=== PATIENT | female | born 2000 | race Caucasian/White ===

== ENCOUNTER → 2023-03-21 15:40 | Outpatient (CLI) | payer OTHER, SELFPAY ==
[2023-03-21 16:14] LABS: Add Manual Diff / Slide Review NO; Basophils Absolute Auto 100 /uL (0-100); Basophils Percent Auto 0.8 % (0-2); Eosinophils Absolute Auto 300 /uL (0-450); Eosinophils Percent Auto 2.5 % (2-4); Hematocrit 40.7 % (36-46); Hemoglobin 13.8 g/dL (12.0-16.0); Lymphocytes Absolute Auto 2800 /uL (1100-4500); Lymphocytes Percent Auto 22.9 % (25-40); Mean Corpuscular Hemoglobin 31.7 PG (26-34); Mean Corpuscular Volume 93.1 fL (80-100); Monocytes Absolute Auto 800 /uL (0-900); Monocytes Percent Auto 6.3 % (3-14); Neutrophils Absolute Auto 8300 /uL (1500-7000); Neutrophils Percent Auto 67.5 % (50-75); Platelet Count 334 X10^3/uL (150-400); Red Blood Cell Count 4.37 X10^6/uL (4.0-5.2); Red Cell Distribution Width 12.8 % (11.6-14.8); White Blood Cell Count 12.2 X10^3/uL (4.5-11.0)
[2023-03-21 16:53] LABS: Alanine Aminotransferase 51 IU/L (<35); Albumin 4.4 g/dL (3.5-5.0); Albumin Globulin Ratio 1.2 (1.0-2.8); Alkaline Phosphatase 65 U/L (38-126); Aspartate Aminotransferase 34 IU/L (14-36); BUN Creatinine Ratio 15.4 (6-22); Bilirubin Total 0.5 mg/dL (0.2-1.3); Blood Urea Nitrogen 10 mg/dL (7-17); Calcium 9.2 mg/dL (8.4-10.2); Carbon Dioxide 27 mmol/L (22-32); Chloride 102 mmol/L (98-107); Cholesterol 216 mg/dL (140-199); Estimated Glomerular Filt Rate > 60 mL/min (>60); Globulin 3.7 g/dL (1.7-4.1); Glucose 79 mg/dL (70-100); HDL Cholesterol 33 mg/dL (40-60); HEMOLYSIS < 15 (0-50); LDL Cholesterol Calculated 124 mg/dL (<100); Potassium 4.1 mmol/L (3.4-5.1); Sodium 137 mmol/L (137-145); Total Protein 8.1 g/dL (6.3-8.2); Triglycerides 293 mg/dL (35-150)
[2023-03-22 07:03] LABS: Labcorp Hemoglobin (Hb) A1c 5.4 % (4.8-5.6)
[2023-03-24 17:50] LABS: HIV 1 & 2 Ab/Ag 4th Gen Combo NEGATIVE (NEGATIVE); Hep C Virus Ab w/Reflex Quant NEGATIVE s/c (NEGATIVE)
== END ==
PROVIDERS: PCP Family Medicine; Referring Provider Family Medicine; Visit Provider Family Medicine
DX: Z00.00 Encounter for general adult medical examination without abnormal findings (principal); E28.2 Polycystic ovarian syndrome; E66.01 Morbid (severe) obesity due to excess calories
CPT/HCPCS: 36415; 80053; 80061; 83036; 84443; 85025; 86803; 87389

== ENCOUNTER → 2023-06-13 15:21 | Outpatient (CLI) | payer OTHER, SELFPAY ==
[2023-06-13 17:43] LABS: Follicle Stimulating Hormone 3.65 mIU/mL; Luteinizing Hormone 4.83 mIU/mL
== END ==
PROVIDERS: PCP Family Medicine; Referring Provider Obstetrics & Gynecology; Visit Provider Obstetrics & Gynecology
DX: N97.0 Female infertility associated with anovulation (principal)
CPT/HCPCS: 36415; 83001; 83002; 84439

== ENCOUNTER → 2023-06-20 09:23 | Outpatient (CLI) | payer OTHER, SELFPAY ==
--- NOTE | 2023-06-20 | DI.US.S_ITS ---
PROCEDURE: US PELVIC COMPLETE INDICATIONS: AMENORRHEA TECHNIQUE: Real-time scanning was performed of the pelvic organs, with image documentation. Additional endovaginal scanning was necessary due to incomplete visualization of the adnexal and endometrial structures by transabdominal scanning. COMPARISON: None. FINDINGS: Uterus: Uterus is anteverted and normal in size at 6.4 x 2.6 x 3.2 cm. The myometrium is homogeneous. The endometrium measures 6 mm combined thickness. Ovaries: The right ovary measures 4.6 x 2.1 x 2.5 cm, with a calculated ovarian volume of 12.2 cc. The left ovary measures 4.2 x 2.5 x 2.6 cm, with a calculated ovarian volume of 14.1 cc. The ovaries have a normal sonographic appearance. There are greater than 12 follicles within the bilateral ovaries. No adnexal masses are seen. Other: No pathologic free abdominal or pelvic fluid. IMPRESSION: 1. Findings meet the [place] 2003 definition for polycystic ovaries. Findings and the clinical history of ovulatory dysfunction in the absence of hyperandrogenism satisfy [place] criteria, but not the Androgen Excess and PCOS Society guidelines, for the diagnosis of PCOS. Further clinical evaluation is warranted. We strive to produce accurate, complete, and clear reports of imaging services. To assist us in improving patient care, this report was composed using standard report templates and voice recognition software. Therefore, it may contain abnormal punctuation, insertions and/or omissions. Occasional wrong-word or sound-alike substitutions may occur. Though we review the report and make efforts to correct it, we do recommend that the report be read carefully in proper context to recognize any text inaccuracies. Dictated by: Elda Marquez M.D. on 06/20/2023 at 13:47 Approved by: Elda Marquez M.D. on 06/20/2023 at 13:50
== END ==
PROVIDERS: PCP Family Medicine; Referring Provider Obstetrics & Gynecology; Visit Provider Obstetrics & Gynecology
DX: N97.0 Female infertility associated with anovulation (principal)
CPT/HCPCS: 76830; 76856; 93975

== ENCOUNTER 2023-12-30 14:38 | Emergency (ER) | payer OTHER, SELFPAY ==
[2023-12-30] VITALS (13 sets, daily range): BP systolic 101–132; BP diastolic 57–77; PULSE 79–110; RESP 18–39; TEMP 36.6; O2SAT 96–97; BMI 48.4
--- NOTE | 2023-12-30 14:47 | DI.RAD.S_ITS ---
PROCEDURE: XR CHEST 1V INDICATIONS: chest pain TECHNIQUE: One view of the chest was acquired. COMPARISON: None. FINDINGS: Surgical changes and devices: None. Lungs and pleura: Lungs are clear. No pleural effusions or pneumothorax. Mediastinum: Mediastinal contours appear normal. Heart size is normal. Bones and chest wall: No suspicious bony lesions. Overlying soft tissues appear unremarkable. IMPRESSION: No acute cardiopulmonary abnormality is seen. Dictated by: Chelsie Moctezuma MD, PhD on 12/30/2023 at 16:07 Approved by: Chelsie Moctezuma MD, PhD on 12/30/2023 at 16:07
--- NOTE | 2023-12-30 15:04 | PC.NURSE ---
Pt reports chest pain starting yesterday. Midline. Non-radiating. Pt states she does not take control and she does not smoke; no history of blood clots.
[2023-12-30 15:13] LABS: Add Manual Diff / Slide Review NO; Basophils Absolute Auto 100 /uL (0-100); Basophils Percent Auto 0.7 % (0-2); Eosinophils Absolute Auto 300 /uL (0-450); Eosinophils Percent Auto 2.4 % (2-4); Hemoglobin 13.6 g/dL (12.0-16.0); Lymphocytes Absolute Auto 2900 /uL (1100-4500); Lymphocytes Percent Auto 24.6 % (25-40); Mean Corpuscular HGB Conc 34.1 % (30-36); Mean Corpuscular Hemoglobin 31.4 PG (26-34); Mean Corpuscular Volume 92.2 fL (80-100); Monocytes Absolute Auto 600 /uL (0-900); Monocytes Percent Auto 5.4 % (3-14); Neutrophils Absolute Auto 7900 /uL (1500-7000); Neutrophils Percent Auto 66.9 % (50-75); Platelet Count 320 X10^3/uL (150-400); Red Blood Cell Count 4.34 X10^6/uL (4.0-5.2); Red Cell Distribution Width 12.8 % (11.6-14.8); White Blood Cell Count 11.9 X10^3/uL (4.5-11.0)
[2023-12-30 15:24] LABS: PTT Partial Thromboplastin Tim 43 SECONDS (25.1-36.5)
[2023-12-30] MEDS: ASPIRIN 81 MG CHEW TAB 324 MG PO (15:27)
[2023-12-30 15:28] LABS: Alanine Aminotransferase 40 IU/L (<35); Albumin 4.3 g/dL (3.5-5.0); Albumin Globulin Ratio 1.1 (1.0-2.8); Alkaline Phosphatase 65 U/L (38-126); Aspartate Aminotransferase 31 IU/L (14-36); BUN Creatinine Ratio 15.1 (6-22); Bilirubin Total 0.6 mg/dL (0.2-1.3); Blood Urea Nitrogen 8 mg/dL (7-17); Calcium 9.1 mg/dL (8.4-10.2); Carbon Dioxide 24 mmol/L (22-32); Chloride 108 mmol/L (98-107); Creatine Kinase 47 U/L (30-135); Estimated Glomerular Filt Rate > 60 mL/min (>60); Globulin 3.8 g/dL (1.7-4.1); Glucose 88 mg/dL (70-100); HEMOLYSIS 23 (0-50); Lipase 44 U/L (23-300); Magnesium 2.1 mg/dL (1.6-2.3); Potassium 4.2 mmol/L (3.4-5.1); Sodium 138 mmol/L (137-145); Total Protein 8.1 g/dL (6.3-8.2)
[2023-12-30 15:39] LABS: Troponin I < 0.012 ng/mL (0.01-0.034)
--- NOTE | 2023-12-30 16:18 | ED.CHESTPAIN ---
HPI - Chest Pain General Chief Complaint: Chest Pain Stated Complaint: SOB/ CHEST PAINS T-1 Time Seen by Provider: 12/30/23 15:55 Source: patient and family Mode of arrival: Ambulatory History of Present Illness HPI narrative: [age] old female with history of asthma uses albuterol no other reported medical issues who presents with complaint of shortness of breath. Patient states she has had albuterol helpful but not as helpful the last day or so. Patient states no fevers or chills. She did have some chest heaviness earlier today. She states it feels very tight like her usual asthma exacerbations. She has not been on any steroids recently. She has had oral steroids in the past she denies hospitalization. She denies any syncope, no fevers or chills, no cold cough or congestive symptoms at all nausea earlier today no vomiting. No issues with bowel movements. No urinary symptoms. No swelling of extremities. She states she has not on any estrogen, only uses albuterol, no prior steroid inhalers. States only prior surgeries or wisdom teeth. No known drug allergies. No tobacco, rare alcohol, no recreational drugs. Spouse smokes nicotine but does not use any tobacco or smoke around the patient. Patient has not had any long distance travel. No history of pulmonary emboli. Dr. Villatoro is her primary care physician. Related Data Previous Rx's Medication Instructions Recorded phentermine 37.5 mg tablet 18.75 mg (1/2 x 37.5 mg) PO DAILY 05/02/23 #30 tabs fexofenadine 180 mg tablet 180 mg PO DAILY #90 tabs 06/17/23 vitamins no.119-iron 1 tab PO DAILY #90 tabs 06/17/23 fumarate 29 mg-folic acid 1 mg tablet letrozole 2.5 mg tablet 2.5 mg PO DAILY #5 tabs 08/13/23 medroxyprogesterone 10 mg tablet 10 mg PO DAILY #10 tabs 08/13/23 albuterol sulfate 90 mcg/actuation 1 - 2 inh inhalation Q4-6H PRN 11/18/23 aerosol inhaler shortness of breath or wheezing #8.5 grams albuterol sulfate 2.5 mg/3 mL 2.5 mg (3 mL) inhalation QID PRN 11/19/23 (0.083 %) solution for nebulization wheezing #75 mL albuterol sulfate 2.5 mg/3 mL 2.5 mg (3 mL) inhalation Q4-6H PRN 12/30/23 (0.083 %) solution for nebulization shortness of breath or wheezing #75 mL albuterol sulfate 90 mcg/actuation 2 puff inhalation Q4-6H PRN 12/30/23 aerosol inhaler shortness of breath or wheezing #6.7 grams prednisone 10 mg tablets in a dose See Rx Instructions PO .COMPLEX 12/30/23 pack #21 ea Allergies Allergy/AdvReac Type Severity Reaction Status Date / Time No Known Drug Allergies Allergy Verified 12/30/23 14:42 Review of Systems Review of Systems ROS Unobtainable: All systems reviewed & are unremarkable except as noted in HPI and below Patient History Medical History Asthma (~2004) Allergies (~2004) Abnormal chest xray (~2006) Depression (~2015) Anxiety (~2015) Fractures (~2015) Chicken pox Abnormal Pap smear of cervix Mixed hyperlipidemia PCOS (polycystic ovarian syndrome) Irregular menstrual cycle (~2011) Morbid obesity Surgical History [place] teeth extracted Family History Father History of heart disease Hypertension Mother Cancer Hypertension Mental health problem History of surgery Brother Hypertension Sister Hypertension Grandfather Diabetes mellitus History of heart disease Hyperlipidemia Hypertension Kidney failure Cancer Grandmother Cancer History of heart disease Hyperlipidemia Hypertension Mental health problem Stroke Grandfather Cancer History of heart disease Hyperlipidemia Hypertension Grandmother Diabetes mellitus History of heart disease Hyperlipidemia Hypertension COPD (chronic obstructive pulmonary disease) Social History Smoking Status: Never smoker Smoking Status: Never smoker Substance Use Type: does not use Exam Narrative Exam Narrative: GENERAL: Alert and oriented x three, obese female in mild distress. HEENT: Head normocephalic, atraumatic, EOMI, pupils reactive, face symmetric, moist mucous membranes NECK: Supple, full range of motion CARDIOVASCULAR: Regular rate and rhythm without murmurs, rubs or gallops. No JVD. No swelling bilateral lower extremities. RESPIRATORY: Breath sounds equal bilaterally, no wheezes rales or rhonchi. No tachypnea or accessory muscle use. ABDOMEN: Soft, nontender. Normoactive bowel sounds all 4 quadrants. No guarding or rebound, rigidity, no mass : No CVA tenderness EXTREMITIES: Normal range of motion, no clubbing or edema. Neurovascularly intact NEUROLOGICAL: Cranial nerves II through XII grossly intact. Moving all extremities SKIN: Warm, dry, no petechiae, no rashes or lesions. Initial Vital Signs Initial Vital Signs: Vital Signs Temperature 97.9 F 12/30/23 14:42 Pulse Rate 103 H 12/30/23 14:42 Respiratory Rate 18 12/30/23 14:42 Blood Pressure 113/77 12/30/23 14:42 Pulse Oximetry 97 12/30/23 14:42 Oxygen Delivery Method Room Air 12/30/23 14:42 Course Orders Ordered: ED Orders 12/30/23 14:47 XR chest 1V Stat 12/30/23 14:54 EKG-12 Lead Stat 12/30/23 15:00 Complete Blood Count AUTO DIFF Stat Comprehensive Metabolic Panel Stat Lipase Stat Magnesium Stat PTT Partial Thromboplastin Alfredo Stat Prothrombin Time INR Stat Troponin & CK Cardiac Panel Stat Discontinued Medications Aspirin (Aspirin 81 Mg Chew Tab) 324 mg PO NOW ONE Stop: 12/30/23 14:48 Last Admin: 12/30/23 15:27 Dose: 324 mg Documented By: LYN Prednisone (Prednisone 20 Mg Tablet) 60 mg PO NOW ONE Stop: 12/30/23 17:45 Last Admin: 12/30/23 17:50 Dose: 60 mg Vital Signs Vital signs: Vital Signs - 8 hr 12/30/23 14:42 12/30/23 14:52 12/30/23 14:54 Temperature 97.9 F Pulse Rate 103 H 110 H 107 H Respiratory Rate 18 22 Blood Pressure 113/77 Pulse Oximetry 97 97 Oxygen Delivery Method Room Air 12/30/23 14:54 12/30/23 15:00 12/30/23 15:01 Temperature Pulse Rate 98 H Respiratory Rate 20 Blood Pressure 113/72 132/73 Pulse Oximetry 96 Oxygen Delivery Method Room Air 12/30/23 15:01 12/30/23 15:30 12/30/23 16:00 Temperature Pulse Rate 99 H 94 H Respiratory Rate 20 20 Blood Pressure 106/57 L Pulse Oximetry 97 96 Oxygen Delivery Method 12/30/23 16:00 12/30/23 16:30 12/30/23 16:31 Temperature Pulse Rate 88 85 85 Respiratory Rate 31 H 28 H 21 Blood Pressure Pulse Oximetry 97 97 96 Oxygen Delivery Method 12/30/23 16:31 12/30/23 17:00 12/30/23 17:01 Temperature Pulse Rate 84 Respiratory Rate 22 Blood Pressure 105/65 111/71 Pulse Oximetry 96 Oxygen Delivery Method 12/30/23 17:01 12/30/23 17:30 12/30/23 17:32 Temperature Pulse Rate 87 86 Respiratory Rate 21 39 H Blood Pressure 101/60 Pulse Oximetry 96 97 Oxygen Delivery Method 12/30/23 17:32 Temperature Pulse Rate 79 Respiratory Rate 25 H Blood Pressure Pulse Oximetry 97 Oxygen Delivery Method MDM - Chest Pain Lab Data 12/30/23 15:00 12/30/23 15:00 Labs: Lab Results 12/30/23 Range/Units 15:00 WBC 11.9 H (4.5-11.0) X10^3/uL RBC 4.34 (4.0-5.2) X10^6/uL Hgb 13.6 (12.0-16.0) g/dL Hct 40.0 (36-46) % MCV 92.2 (80-100) fL MCH 31.4 (26-34) PG MCHC 34.1 (30-36) % RDW 12.8 (11.6-14.8) % Plt Count 320 (150-400) X10^3/uL Neut % (Auto) 66.9 (50-75) % Lymph % (Auto) 24.6 L (25-40) % [place] % (Auto) 5.4 (3-14) % Eos % (Auto) 2.4 (2-4) % Baso % (Auto) 0.7 (0-2) % Neut # (Auto) 7900 H (5769-2264) /uL Lymph # (Auto) 2900 (7843-4907) /uL [place] # (Auto) 600 (0-900) /uL Eos # (Auto) 300 (0-450) /uL Baso # (Auto) 100 (0-100) /uL PT 11.0 (9.4-12.5) SECONDS INR 1.0 (0.9-1.3) APTT 43 H (25.1-36.5) SECONDS Sodium 138 (137-145) mmol/L Potassium 4.2 (3.4-5.1) mmol/L Chloride 108 H (98-107) mmol/L Carbon Dioxide 24 (22-32) mmol/L BUN 8 (7-17) mg/dL Creatinine 0.53 (0.52-1.04) mg/dL Estimated GFR > 60 (>60) mL/min BUN/Creatinine Ratio 15.1 (6-22) Glucose 88 (70-100) mg/dL Calcium 9.1 (8.4-10.2) mg/dL Magnesium 2.1 (1.6-2.3) mg/dL Total Bilirubin 0.6 (0.2-1.3) mg/dL AST 31 (14-36) IU/L ALT 40 H (<35) IU/L Alkaline Phosphatase 65 (38-126) U/L Total Creatine Kinase 47 (30-135) U/L Troponin I < 0.012 (0.01-0.034) ng/mL Total Protein 8.1 (6.3-8.2) g/dL Albumin 4.3 (3.5-5.0) g/dL Globulin 3.8 (1.7-4.1) g/dL Albumin/Globulin Ratio 1.1 (1.0-2.8) Lipase 44 (23-300) U/L Imaging Data Chest x-ray: Radiologist's Impression: [address] [address] XRay Report Signed Patient: Jayshree Collado MR#: [id number] : 2000 Acct:[id number] Age/Sex: 23 / F Date of Service: 12/30/23 Loc: ED Accession Number: [id number] Procedure: XR chest 1V Ordering Provider: Layne Tse D.O. PROCEDURE: XR CHEST 1V INDICATIONS: chest pain TECHNIQUE: One view of the chest was acquired. COMPARISON: None. FINDINGS: Surgical changes and devices: None. Lungs and pleura: Lungs are clear. No pleural effusions or pneumothorax. Mediastinum: Mediastinal contours appear normal. Heart size is normal. Bones and chest wall: No suspicious bony lesions. Overlying soft tissues appear unremarkable. IMPRESSION: No acute cardiopulmonary abnormality is seen. Dictated by: Chelsie Moctezuma MD, PhD on 12/30/2023 at 16:07 Approved by: Chelsie Moctezuma MD, PhD on 12/30/2023 at 16:07 ECG Data Attestation: I personally reviewed and interpreted this ECG as follows: Prior ECG tracings: not available for review Interpretation: Sinus tach rate of 104 IN 140 QRS is 74 QTC of 454. No acute ST elevation, no priors for comparison. MDM Narrative Medical decision making narrative: 3-year-old female comes in with complaint of asthma exacerbation and tightness in her chest. On exam she is slightly tachycardic initially with vitals but not on my examination. Patient has been sitting for some time. She is not wheezy lungs are clear. Labs show white count of 11.9 hemoglobin of 13 platelets of 320, creatinine 0.53 with a BUN of 8, glucose 88, sodium of 138 potassium of 4.2 with chloride of 108 and a CO2 of 24, negative LFTs. Negative troponin. Chest x-ray is negative for pneumonia or acute structural changes. EKG shows sinus tach no acute ST changes, no S1 Q 1 T3. Discussed with patient she has not wheezy or tight although she feels improved now. She did not have any treatments here in the department. I would recommend repeat troponin and D-dimer here in the department. Patient would very much like to return home and defers this. She and I discussed we will do a short course of steroids to see if this is helpful but that we have not completed her workup and she has not had ruled out pulmonary emboli. Discharge Plan Departure Patient Disposition: Home Clinical Impression: Dyspnea Activity Restrictions/Additional Instructions: Follow up for recheck. If you are shortness of breath is persisting I do recommend repeat follow-up as we did not totally complete your workup. Take steroids daily until gone. Prescription for albuterol inhaler as well as vials for your nebulizer were sent to [facility] in [place]. Please return for new or worsening symptoms, passing out, increasing shortness of breath, new chest pain, persistent vomiting, swelling of extremities or other new or concerning changes. Prescriptions: New prednisone 10 mg tablets,dose pack See Rx Instructions .ROUTE .COMPLEX Qty: 21 0RF Rx Instructions: Take 6 tablets p.o. times 1day, take 5 tablets p.o. x1 day, take 4 tablets p.o. x1 day, 3 tablets p.o. x1 day, 2 tablets p.o. x1 day, 1 tablet x 1 day albuterol sulfate 2.5 mg /3 mL (0.083 %) solution for nebulization 2.5 mg inhalation Q4-6H PRN (Reason: shortness of breath or wheezing) Qty: 75 0RF albuterol sulfate 90 mcg/actuation HFA aerosol inhaler 2 puff inhalation Q4-6H PRN (Reason: shortness of breath or wheezing) Qty: 6.7 0RF No Action albuterol sulfate 90 mcg/actuation HFA aerosol inhaler 1 - 2 inh inhalation Q4-6H PRN (Reason: shortness of breath or wheezing) Qty: 8.5 11RF albuterol sulfate 2.5 mg /3 mL (0.083 %) solution for nebulization 2.5 mg inhalation QID PRN (Reason: wheezing) Qty: 75 11RF phentermine 37.5 mg tablet 18.75 mg PO DAILY Qty: 30 0RF Rx Instructions: must administer 30 minutes before or 1-2 hours after breakfast medroxyprogesterone 10 mg tablet 10 mg PO DAILY Qty: 10 3RF Rx Instructions: Take one a day for 10 days letrozole 2.5 mg tablet 2.5 mg PO DAILY Qty: 5 0RF Rx Instructions: Take one tablet Day 3-7 of cycle fexofenadine 180 mg tablet 180 mg PO DAILY Qty: 90 3RF PNV 119-iron fum-folic acid 29 mg iron- 1 mg tablet 1 tab PO DAILY Qty: 90 3RF Referrals: Mariella Villatoro DO [Primary Care Provider] - Stand Alone Forms: Patient Portal/API, Work Release Note
[2023-12-30] MEDS: predniSONE 20 MG TABLET 60 MG PO (17:50)
== END 2023-12-30 17:59 | disposition home or self-care (01) ==
PROVIDERS: Emergency Provider Emergency Medicine; PCP Family Medicine
DX: R06.00 Dyspnea, unspecified (principal); R07.9 Chest pain, unspecified; Z79.899 Other long term (current) drug therapy
CPT/HCPCS: 36415; 71045; 80053; 82550; 83690; 83735; 84484; 85025; 85610; 85730; 93005; 93010; 99284